=== PATIENT | female | born 1965 | race Caucasian/White ===

== ENCOUNTER 2016-12-14 09:01 | Emergency (ER) | payer OTHER ==
[~2016-12-14] VITALS: Ht 162.6 cm; Wt 130.6 kg
[2016-12-14 09:03] VITALS: BP 167/120; PULSE 98; RESP 17; O2SAT 97
[2016-12-14] MEDS ORDERED: AUGM875T PO (09:19)
[2016-12-14] MEDS ORDERED: LIDOCAINE 1%/EPINEPHrine 1:100,000 SOLN 20 ML VIAL INFIL ONE (09:30)
[2016-12-14] MEDS ORDERED: ULTR50TA5 PO (09:33)
[2016-12-14] MEDS ORDERED: BACT800T5 PO (09:33)
--- NOTE | 2016-12-14 09:33 | PD ---
HPI . Cyst Chief Complaint: Skin Problem Time Seen by Provider: 09:16 Travel History International Travel<30 days: No Contact w/Intl Traveler<30days: No Traveled to known affect area: No History of Present Illness HPI Patient presents with a cyst in her left axilla. She states this been there for about a week. She saw her PMD about 3 days ago and was placed on. She states that it has gotten worse rather than better. It has not spontaneously drained. She has not been running a fever. LOCATION: L axilla DURATION: One week TIMING: Progressively worsening MODIFYING FACTORS: Unrelieved by Augmentin ASSOCIATED SYMPTOMS: No associated fever PFSH Past Medical History Anxiety: Yes Diminished Hearing: No Tetanus Vaccination: < 5 Years Influenza Vaccination: No ?: Not : 3 Para: 3 Past Surgical History Gynecologic Surgery: Yes (D&C AND ABLASION) Hysterectomy: Yes (Partial ) Tonsillectomy: Yes (TONSILS AND ADNOIDS) Social History Alcohol Use: No Tobacco Use: No Substance Use: No Allergies-Medications (Allergen,Severity, Reaction): Coded Allergies: No Known Allergies (Verified , 07/08/16) Reported Meds & Prescriptions Reported Meds & Active Scripts Active No Active Prescriptions or Reported Medications Review of Systems Except as stated in HPI: all other systems reviewed are Neg General / Constitutional: No: Fever, Chills Skin: Positive Lesions Physical Exam Narrative GENERAL: Awake and alert and in no acute distress. SKIN: Warm and dry. Fluctuant area of induration in the left axilla. It is 2 cm in diameter. She has a couple of other pustules in the left axilla. CARDIOVASCULAR: Regular rate and rhythm. RESPIRATORY: No accessory muscle use. MUSCULOSKELETAL: No obvious deformities. No edema. NEUROLOGICAL: Awake and alert. No obvious cranial nerve deficits. Motor grossly within normal limits. Normal speech. PSYCHIATRIC: Appropriate mood and affect; insight and judgment normal. Data Data Last Documented VS Vital Signs Date Time Temp Pulse Resp B/P Pulse Ox O2 Delivery O2 Flow Rate FiO2 12/14/16 09:03 98 17 167/120 97 MDM Medical Decision Making Medical Screen Exam Complete: Yes Emergency Medical Condition: Yes Differential Diagnosis My differential diagnosis closed but is not limited to abscess, cyst, lipoma Narrative Course Patient presents with an abscess in the left axilla. Procedures Procedure Narrative INCISION AND DRAINAGE OF ABSCESS: The area was prepped and was sterilely draped. A subcutaneous wheal of 1% % Xylocaine with epi with a total number 10 mL was used to anesthetize the area properly. A number 11 scalpel was used to make a 1-cm incision across the area of the abscess. The abscess was drained, complex loculations were broken down. Quarter inch iodoform packing was placed in the wound. Sterile dressing applied. Patient advised to have packing removed in two days. Diagnosis Primary Impression: Abscess of left axilla Patient Instructions: Abscess Incision and Drainage (DC), General Instructions Med/Other Pt SpecificInfo: Prescription(s) given Scripts Tramadol (Ultram)50 Mg Tab50 Mg PO Q4H PRN (PAIN) #12 TAB Ref 0 Prov:Preethi Jack MD 12/14/16 Sulfamethoxazole-Trimethoprim (Bactrim DS)800-160 Mg Tab1 Tab PO BID #20 TAB Ref 0 Prov:Preethi Jack MD 12/14/16 Disposition: 01 DISCHARGE HOME Condition: Stable Preethi Jack MD Dec 14, 2016 09:33
[2016-12-14 09:50] VITALS: BP 119/63
== END 2016-12-14 09:54 | disposition home or self-care (01) ==
LOC: PHED 09:01
DX: L02.412 Cutaneous abscess of left axilla (principal)
CPT/HCPCS: 10061

== ENCOUNTER 2017-08-02 08:42 | Emergency (ER) | payer OTHER ==
[~2017-08-02] VITALS: Ht 162.6 cm; Wt 127.0 kg
[~2017-08-02 08:42] MED LIST: AUGM875T PO; BACT800T5 PO; TRAM50 PO
[2017-08-02 08:46] VITALS: BP 138/77; PULSE 78; RESP 16; TEMP 97.8; O2SAT 99
[2017-08-02] MEDS ORDERED: CLIN150C14 PO (08:57)
--- NOTE | 2017-08-02 08:58 | PD ---
HPI Chief Complaint: Skin Problem Time Seen by Provider: 08:54 Travel History International Travel<30 days: No Contact w/Intl Traveler<30days: No Traveled to known affect area: No History of Present Illness HPI 52 yo F with 5 days increasing pain, redness and swelling R index finger. Pt attempted to express purulent drainage two days prior with some temporary improvement however redness and pain worsened. No fever. + Proximal radiation, erythema, pain, swelling. Pt believes she may have burned the finger while cooking. PFSH Past Medical History Anxiety: Yes Diminished Hearing: No ?: Not : 3 Para: 3 Past Surgical History Gynecologic Surgery: Yes (D&C AND ABLASION) Hysterectomy: Yes Tonsillectomy: Yes (TONSILS AND ADNOIDS) Social History Alcohol Use: No Tobacco Use: No Substance Use: No Allergies-Medications (Allergen,Severity, Reaction): Coded Allergies: No Known Allergies (Verified Adverse Reaction, Unknown, 08/02/17) Reported Meds & Prescriptions Reported Meds & Active Scripts Active No Active Prescriptions or Reported Medications Review of Systems General / Constitutional: No: Fever Respiratory: No: Cough, Shortness of Breath Physical Exam Narrative GENERAL: 52 yo F, WNWD, mild distress 2/2 pain SKIN: Warm and dry. HEAD: Normocephalic. GASTROINTESTINAL: Abdomen soft, non-tender, nondistended. MUSCULOSKELETAL: No cyanosis, or edema. Erythema, swelling, induration proximal phalanx R ring finger. No pain with passive ROM affected digit. Minimal erythema extending proximally toward the dorsal DRUJ. BACK: Nontender without obvious deformity. No CVA tenderness. Data Data Last Documented VS Vital Signs Date Time Temp Pulse Resp B/P (MAP) Pulse Ox O2 Delivery O2 Flow Rate FiO2 08/02/17 08:46 97.8 78 16 138/77 (97) 99 VS reviewed Orders Orders Ed Discharge Order (08/02/17 08:59) Clindamycin (Cleocin) (08/02/17 09:00) MDM Medical Decision Making Medical Screen Exam Complete: Yes Emergency Medical Condition: Yes Differential Diagnosis abscess, cellulitis, flexor tenosynovitis Narrative Course abscess drained here 18g needle unroofed dried purulent covering leading to expression of a few cc's brown discharge with marked relief per patient clindamycin script return for wound check in two days. Critical Care Narrative After the risks and benefits were discussed the following procedure was performed: INCISION AND DRAINAGE OF ABSCESS: The area was prepped and was sterilely draped. A number 18 g needle was used to make a 2mm incision across the area of the abscess. Cultures were obtained. The abscess was drained an irrigated with normal saline. Sterile dressing applied. Patient advised to return for wound check in two days. Diagnosis Primary Impression: Cellulitis of finger of right hand Additional Impression: Abscess of finger of right hand Referrals: RETURN FOR WOUND CHECK IN TWO DAYS 2 days Additional Instructions: PLEASE RETURN FOR A WOUND CHECK IN TWO DAYS WITHOUT FAIL. CLEANSE WITH SOAP AND WATER TWICE DAILY. Med/Other Pt SpecificInfo: Prescription(s) given Scripts No Active Prescriptions or Reported Meds Disposition: 01 DISCHARGE HOME Condition: Stable Raman Membreno MD Aug 02, 2017 08:58
[2017-08-02] MEDS ORDERED: CLINDAMYCIN 150 MG CAP PO ONE (09:00)
== END 2017-08-02 09:20 | disposition home or self-care (01) ==
LOC: PHEFT 08:42
DX: L03.011 Cellulitis of right finger (principal); L02.511 Cutaneous abscess of right hand
CPT/HCPCS: 10060